=== PATIENT | female | born 1995 | race Hispanic/Latino ===

== ENCOUNTER 2023-09-20 15:38 | Emergency (ER) | payer OTHER ==
[~2023-09-20] VITALS: Ht 165.1 cm; Wt 113.4 kg
[2023-09-20 15:45] VITALS: TEMP 98.9
[2023-09-20] MEDS ORDERED: PREDNISONE 10 MG TAB PO STA (15:48)
[2023-09-20] MEDS ORDERED: TRAMADOL HCL 50 MG TAB PO ONE (16:15)
[2023-09-20] MEDS ORDERED: IOPAMIDOL 370 MG/ML 100 ML INFUS..BTL INJ ONE (16:17)
[2023-09-20] MEDS: METHYLPREDNISOLONE SOD SUCC 125 MG/2ML VIAL IV STA (16:23)
[2023-09-20] MEDS: ONDANSETRON HCL INJ 2MG/ML 2ML 2 MG/ML VIAL IV STA (16:23)
[2023-09-20] MEDS: SODIUM CHLORIDE 0.9% 1000ML 1,000 ML IV STA (16:23)
[2023-09-20] MEDS: Morphine 4mg INJECTION 4 MG/ML INJ IV ONE (16:24)
[2023-09-20 17:50] VITALS: PULSE 96; RESP 18; O2SAT 96
[2023-09-20] MEDS ORDERED: PREDNISONE20 MG PO (18:00)
[2023-09-20] MEDS ORDERED: ACETAMINOPHEN-1 EAC4 PO (18:00)
== END 2023-09-20 18:07 | disposition home or self-care (01) ==
LOC: FSED 15:41
DX: M54.42 Lumbago with sciatica, left side (principal); I16.0 Hypertensive urgency; R00.0 Tachycardia, unspecified; E11.65 Type 2 diabetes mellitus with hyperglycemia; K57.90 Diverticulosis of intestine, part unspecified, without perforation or abscess without bleeding
CPT/HCPCS: 74174; 80048; 81003; 81025; 85025; 93005; 99284; J2270; J2405; J2919; J7030; J7512; Q9967